=== PATIENT | female | born 1955 | race Caucasian/White ===

== ENCOUNTER 2017-02-22 13:31 | Inpatient (IN) ==
--- NOTE | 2017-02-22 14:09 | Emergency Department Note ---
Disposition Clinical Impression: Severe anemia, Symptomatic anemia Disposition: Admitted As Inpatient Condition: Fair Referrals: Matthias Davey MD [Primary Care Provider] - Forms: ED Satisfaction Letter Time of Disposition: 14:25 SOB HPI - General Chief Complaint: ED Shortness of Breath/Dyspnea Stated Complaint: MIC, bilat LE edema Time Seen by Provider: 02/22/17 13:49 Source: patient Mode of arrival: private vehicle Limitations: no limitations Nursing Notes Reviewed: Yes Vital Signs Reviewed: Yes - History of Present Illness Pt Subjective Complaint: shortness of breath Onset (ago): week(s) (About 3 weeks) Severity: severe Consistency/Duration: intermittent Improves with: rest Worsens with: exertion (Patient states she cannot walk without getting short of breath although she is just sitting still she feels fine.), movement (Patient got short of breath just rolling over in bed for the rectal exam) Known history of: PE, DVT Associated symptoms: Reports: denies other symptoms. Denies: chest pain, fever , cough Treatment prior to arrival: other (The patient went and had lab work done that was actually supposed to have been done about 3 months ago but she never got around to it. She says it was then supposed to be done again about 2 weeks ago which she did not get around to it until today. That result showed a hemoglobin of 6.2 and she was called and told to come to the emergency department.) Cough present: No - Related Data Previous Rx's Medication Instructions Recorded Oxycodone HCl/Acetaminophen 1 each PO Q4-6H PRN #4 tablet 10/19/16 [Percocet 5-325 mg Tablet] Allergies Allergy/AdvReac Type Severity Reaction Status Date / Time Sulfa (Sulfonamide Allergy Rash Verified 10/19/16 13:08 Antibiotics) All systems ED: reviewed and negative except as stated. Constitutional: Denies: fever, chills ENT ED: Denies: ear pain, throat pain Cardiovascular: Reports: dyspnea on exertion. Denies: chest pain, palpitations , orthopnea Respiratory: Denies: cough, wheezes, hemoptysis Gastrointestinal: Denies: abdominal pain, nausea, vomiting, hematemesis, melena , hematochezia Genitourinary: Denies: urgency, dysuria, hematuria Musculoskeletal: Denies: back pain Integumentary: Denies: rash Neurological: Reports: weakness (Generalized). Denies: headache Hematological/Lymphatic: Denies: easy bleeding, easy bruising Past Medical History - Past Medical History Attestation: Yes The following information was validated with the patient. 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 Absent : tenderness - Respiratory Respiratory exam: Present: other (Patient has good air movement on inspiration and expiration. There are crackles at the bases bilaterally.). Absent: respiratory distress - Cardiovascular Cardiovascular exam: Present: regular rate, irregular rhythm, normal heart sounds - Abdominal Exam Abdominal exam: Present: soft, Non-Tender, normal bowel sounds - Rectal Exam [employer] present during exam: Yes Rectal exam: Present: normal inspection, normal rectal tone, heme (-) stool - Extremities Exam Extremities exam: Present: normal inspection, full ROM, pedal edema (Bilateral) - Neurological Exam Neurological exam: Present: alert, oriented X3 - Psychiatric Psychiatric exam: Present: normal affect, normal mood - Skin Skin exam: Present: warm, dry. Absent: rash Course Course Narrative: Patient presents with a report of several weeks of shortness of breath. She has got some edema building up in her legs. She does have a little crackles in the base of her lungs. She has dyspnea on exertion but not orthopnea. She had lab work done today which showed hemoglobin of 6.2. I think this explains her symptoms. I think all the issues are more related to the anemia as opposed to congestive heart failure. Patient has chronic history of anemia but says her blood count is never been this low. She has never required transfusion before. She does not report any blood loss. Her stool was guaiac negative. I ordered an IV and a transfusion of 2 units of packed red cells. No further workup is indicated here in the emergency department except for checking her coags and a chest x-ray. I have already placed a call to the hospitalist to arrange admission for transfusion. - Consultations Consultation #1: Dev, clinical nurse practitioner - I spoke to the hospitalist nurse practitioner. Discussed the case and his exam findings and lab results. Patient has been accepted for admission. Time: 14:24 Vital Signs Temperature 98.4 F 02/22/17 13:35 Pulse Rate 91 02/22/17 13:35 Respiratory Rate 20 02/22/17 13:35 Blood Pressure 147/72 02/22/17 13:35 O2 Sat by Pulse Oximetry 94 02/22/17 13:35 Temperature 98.4 F 02/22/17 13:35 Pulse Rate 91 02/22/17 13:35 Respiratory Rate 20 02/22/17 13:35 Blood Pressure 147/72 02/22/17 13:35 O2 Sat by Pulse Oximetry 94 02/22/17 13:35 Oxygen Delivery Oxygen Delivery Room Air Shortness of Breath/Dyspnea - Medical Records Medical records reviewed: Yes I reviewed the patient's medical records. - EKG Data EKG attestation: Yes I reviewed and interpreted this EKG. EKG shows normal: Reports: axis Rate: Reports: tachycardia Rhythm: Reports: A.Fib [place]/QRS: Reports: IVCD Voltage: Reports: decreased voltage throughout Interpretation: Reports: unchanged when compared to prior tracing (date) ( May 2014)
[2017-02-22 14:34] LABS: INR 3.2; Prothrombin Time 36.1 Seconds (9.4-12.1)
[2017-02-22 14:37] LABS: Activated Partial Thrombo Time 45.9 Seconds (26.0-36.0)
[2017-02-22] MEDS ORDERED: 0.9 % Sodium Chloride 250 ML ONE ×2 (15:44→22:14)
[2017-02-22] MEDS ORDERED: Acetaminophen 325 MG TABLET PO PRN (16:09)
[2017-02-22] MEDS ORDERED: Naloxone 0.4 MG/ML INJ IVP PRN (16:09)
--- NOTE | 2017-02-22 16:38 | Internal Med History&Physical ---
<Carol Méndez - Last Filed: 02/22/17 17:12> Date of Encounter: 02/22/17 Time of Encounter: 16:23 Assessment and Plan (1) Symptomatic anemia Current visit: Yes Status: Acute 1 patient has been expressing increasing shortness of breath approximately 3 weeks. She does have a history of anemia has not been taking her iron pills for the past month. She denies any symptoms or bleeding. Hemoglobin 6.2 she was typed and screened transfuse 2 units PRBCs. INR is 3.2 we will continue to monitor H&H 2 performed anemia workup 3 she is not actively bleeding right now-once anemia workup resulted consult GI for possible endoscopy 4 cardiac monitoring (2) Atrial fibrillation Current visit: Yes Status: Acute 1 patient has a history of chronic atrial fibrillation presently rate is controlled she is on Cardizem which we will continue we will hold her Coumadin for now since she is having symptomatic anemia 2 continue his cardiac monitoring Qualifiers: Atrial fibrillation type: chronic Qualified Code(s): I48.2 - Chronic atrial fibrillation (3) History of DVT (deep vein thrombosis) Current visit: Yes Status: Acute 1 she has a history of DVT with PE refill filter in place we will hold Coumadin for now due to symptomatic anemia (4) Hypertension Current visit: Yes Status: Acute 1 resume control we will continue with home medications Qualifiers: Hypertension type: essential hypertension Qualified Code(s): I10 - Essential (primary) hypertension (5) DVT prophylaxis Current visit: Yes Status: Acute SCDs due to symptomatic anemia Internal Medicine - H&P: HPI Chief complaint: SOB Admitted From: Emergency Dept Plans for Post Hospital Care: Home History of present illness: Ms. Espinosa is a 61 year old female Afib anticoagulated DVT PE with IVC filter hypertension rheumatoid arthritis psoriasis. According to patient she has been experiencing increasing shortness of breath on exertion and at rest as well as lower extremity edema. She does have a history of atrial fibrillation and she is morbidly obese she states is not common for her to be short of breath however not normally at rest. Patient states that she does have chronic anemia it is prescribed iron however she has not taken it for over a month due to she ran out of her medication. She denies any melena hematochezia hematemesis, vaginal bleeding or hematuria. She has not had any recent EGD or colonoscopy She presented to her PCP today lab work was drawn her hemoglobin was 6.5 and was advised to go to the ER. According to ER records stool guaiac was negative coags were obtained INR was 3.2. She was typed and screened for 2 years PRBCs and transfusion started in the emergency department. She has been admitted for further workup and evaluation. Presently patient denies any chest pain shortness of breath. She does not appear to be in any respiratory distress. Lungs sounds with faint crackles in the bases. Heart sounds S1 and S2 with no rubs clicks, murmurs noted she has +2 pitting edema lower extremities bilaterally she is hemodynamically stable at this time. I reviewed this case with Dr. Judge who agrees with plan. Past Med Surg Social Fam HX - Past Medical History Medical history: atrial fibrillation, DVT, hypertension, pulmonary embolus, RA Psychiatric history: no psych history - Past Surgical History Surgical History: other, IVC filter - Social History Smoking Status: Never smoker Smokeless Tobacco Status: No Alcohol use: none Drug use: none - Family History Father Living Status: Cause of : trauma Hx Family Cardiac Disorders: Yes (Heart hypertension) Internal Medicine - H&P: Meds Cholecalciferol (D-3) [Vitamin D] 4,000 unit PO MOFR 02/22/17 [History] Diltiazem HCl [Cardizem Cd] 360 mg PO DAILY 02/22/17 [History] Ferrous Sulfate [Iron] 325 mg PO DAILY 02/22/17 [History] Tramadol HCl [Ultram] 100 mg PO BID PRN 02/22/17 [History] Warfarin [Coumadin] 7.5 mg PO SUTUWETHSA 02/22/17 [History] Warfarin [Coumadin] 10 mg PO MOFR 02/22/17 [History] Allergies Sulfa (Sulfonamide Antibiotics) Allergy (Verified 10/19/16 13:08) Rash All Systems PM: A 10-system review of systems was performed and is negative for pertinent findings except as documented above in the HPI. - Constitutional Constitutional: no chills, no fever(s), no night sweats - EENT Eyes: no change in vision, no discharge, no pain, no photophobia Nose, mouth and throat: no dysphagia, no nasal discharge, no neck pain, no sore throat - Cardiovascular Cardiovascular ROS IM: dyspnea, dyspnea on exertion, edema, no chest pain, no diaphoresis, no lightheadedness, no palpitations, no syncope - Respiratory Respiratory: dyspnea, dyspnea on exertion - Gastrointestinal Gastrointestinal: no abdominal pain, no diarrhea, no hematemesis, no hematochezia, no melena, no nausea, no vomiting - Genitourinary Genitourinary: no change in urinary stream, no dysuria, no flank pain, no hematuria - Musculoskeletal Musculoskeletal ROS IM: no numbness, no tingling - Integumentary Integumentary IM: no rash, no unusual bruising - Neurological Neurological ROS: no confusion, no convulsions, no focal weakness, no numbness, no tingling, no tremor(s) - Hematologic/Lymphatic Hematologic/Lymphatic: no easy bruising - Constitutional Vitals: Temp Pulse Resp BP Pulse Ox 98.1 F 80 18 127/72 94 02/22/17 16:08 02/22/17 16:08 02/22/17 16:08 02/22/17 16:08 02/22/17 13:35 General appearance: Present: A&O X 3 - Head Head exam: Present: atraumatic, normocephalic - Eye Eye exam: Present: PERRL, conjuntiva pink, sclera anicteric - Neck Neck exam general surgery: Present: supple, trachea midline. Absent: lymphadenopathy - Respiratory Respiratory exam: Present: rales. Absent: accessory muscle use, rhonchi, wheezes - Cardiovascular Cardiovascular exam: Present: RRR, +S1, +S2. Absent: diastolic murmur, gallop, rubs, systolic murmur - GI/Abdominal GI/Abdominal exam: Present: normal bowel sounds, soft, no peritoneal signs. Absent: distended, tenderness - Extremities Exam Extremities exam: Present: pedal edema, warm, radial pulses palpable and symetrical. Absent: calf tenderness, cyanotic - Neurological Exam Neurological exam: Present: CN II-XII intact, oriented X3, no focal deficits. Absent: pronater drift, facial droop, speech deficit - Skin Skin exam: Present: dry, intact Internal Med - H&P Results - Labs Labs: CBC WBC 6.5 11 6.2 hematocrit 27.2 platelets 343 PT 361 INR 3.2 PTT 45.9 BMP sodium 139 potassium 3.7 chloride 109 bicarbonate 22 BUN 12 crit 0.80 glucose 125 TSH 3.8 BNP 189 - EKG Data Prior EKG available for review: yes When compared to previous EKG: there is no significant change EKG comments: 02/22/17 16:54 Atrial fibrillation - Diagnostic Studies Other Images Additional comments: Chest X-Ray 02/22/17 14:06 IMPRESSION: Cardiomegaly with findings suggestive of developing mild pulmonary edema with a small right-sided pleural effusion. D/ / Inez Barker MD / Inez Barker MD Interpreting Provider: Inez Barker MD <Irineo Judge P - Last Filed: 02/22/17 17:38> Date of Encounter: 02/22/17 Internal Medicine - H&P: HPI History of present illness: Ms. Espinosa is a 61 year old female Past Med Surg Social Fam HX - Family History Father Living Status: Age at : 79 Cause of : trauma Hx Family Cardiac Disorders: Yes (Heart hypertension) Mother Living Status: Age at : 60 Cause of : IN HER SLEEP Hx Family Cardiac Disorders: Yes Hx Family Endocrine Disorder: Yes (DM) All Systems PM: A 10-system review of systems was performed and is negative for pertinent findings except as documented above in the HPI. - Constitutional Vitals: Temp Pulse Resp BP Pulse Ox 98.1 F 84 18 136/62 96 02/22/17 17:05 02/22/17 17:05 02/22/17 17:05 02/22/17 17:05 02/22/17 17:05 Internal Med - H&P Results - Labs Labs: Cardiac Enzymes 02/22/17 Range/Units 17:09 Troponin I 0.01 (0-0.03) ng/mL - Attending Attestation I examined this patient and my medical decision-making was reviewed with the MAT PACKER/PA/Advanced Practice Nurse/Resident Physician. I agree with the documented findings, disposition and treatment plan as described except to the extent set forth below.
[2017-02-22] MEDS: traMADol 50 MG TABLET PO PRN (23:14)
[2017-02-23 04:57] LABS: Hemoglobin 7.1 g/dL (11.5-15.4)
[2017-02-23 04:58] LABS: Basophils # 0.1 K/mcL (0.0-0.2); Basophils % 1.4 %; Eosinophils # 0.4 K/mcL (0.0-0.6); Eosinophils % 6.5 %; Hematocrit 24.5 % (35.3-44.9); Immature Granulocytes % 0.2 % (0-4); Lymphocytes # 1.2 K/mcL (0.6-4.6); Lymphocytes % 18.7 %; Mean Corpuscular Hemoglobin 18.8 pg (28.0-33.3); Mean Corpuscular Volume 64.8 fL (83.0-100.0); Mean Platelet Volume 9.4 fL (9.4-12.4); Monocytes % 14.6 %; Neutrophils # 3.9 K/mcL (1.6-8.9); Platelet Count 309 K/mcL (140-400); Red Blood Count 3.78 M/mcL (3.82-4.97); Red Cell Distribution Width 22.2 % (11.5-14.5); Segmented Neutrophils % 58.6 %
[2017-02-23 05:17] LABS: % Iron Saturation 3 % (15-50); Alanine Aminotransferase 7 Units/L (0-55); Albumin 3.3 g/dL (3.5-5.0); Albumin/Globulin Ratio 1.1 (1.1-2.2); Alkaline Phosphatase 83 Units/L (38-126); Aspartate Amino Transferase 13 Units/L (5-34); BUN/Creatinine Ratio 15 (6-26); Bilirubin,Total 1.2 mg/dL (0.2-1.2); Blood Urea Nitrogen 12 mg/dL (7-20); Calcium 8.7 mg/dL (8.6-10.8); Carbon Dioxide 24 mEq/L (19-29); Chloride 108 mEq/L (98-109); Chol/HDL Ratio 3.2 (0-4.9); Cholesterol 95 mg/dL (< 200); Globulin 3.1 g/dL (2.4-3.5); Glucose 96 mg/dL (70-99); HDL Cholesterol 30 mg/dL (40-59); Iron 13 mcg/dL (50-170); LDL Cholesterol,Calculated 57 mg/dL (0-99); Osmolality,Calculated 286 (280-300); Phosphorous 4.1 mg/dL (2.3-4.7); Potassium 3.9 mEq/L (3.5-4.5); Sodium 138 mEq/L (136-145); Total Protein 6.4 g/dL (6.0-8.3); Transferrin 359 mg/dL (180-382); Triglycerides 39 mg/dL (< 150); eGFR For African Americans > 60 (> 60); eGFR For Non-African Americans > 60 (> 60)
[2017-02-23 05:35] LABS: Anisocytosis 1+ (Not Present); Hypochromasia Present (Not Present); Macrocytosis Present (Not Present); Microcytosis Present (Not Present); Polychromasia 1+ (Not Present)
[2017-02-23 05:36] LABS: Large Platelets Present (Not Present); Platelet Estimate Normal (Normal); Tear Drop Cells 1+ (Not Present)
[2017-02-23 05:37] LABS: Ovalocytes 1+ (Not Present)
[2017-02-23 05:48] LABS: Folate 12.5 ng/mL (7.0-31.4)
[2017-02-23] MEDS: Diltiazem CD (24hr) 180 MG CAPSULE PO SCH (09:04)
[2017-02-23] MEDS: traMADol 50 MG TABLET PO PRN ×2 (09:05→23:48)
[2017-02-23] MEDS ORDERED: SODIUM CHLORIDE/NAHCO3/KCL/PEG 4,000 ML SOLN.RECON PO ONE (10:59)
--- NOTE | 2017-02-23 13:14 | Internal Med Progress Note ---
Date of Encounter: 02/23/17 Time of Encounter: 13:11 - Assessment and plan (1) Symptomatic anemia Current Visit: Yes Status: Acute Assessment and plan: Worsening shortness of breath. Evaluated by PCP. Noted that patient's hemoglobin was low and that is why she was sent to emergency room. Anemia workup showed hypochromic, microcytic anemia. Iron deficiency anemia: Low serum iron Possibility of Thal can not be ruled out Plan: IV PPI 40 mg twice a day. Gastroenterology evaluation. I have spoken to gastroenterology and updated. Possible EGD/colonoscopy on Saturday (2) Atrial fibrillation Current Visit: Yes Status: Acute Assessment and plan: Chronic persistent atrial fibrillation. Rate controlled with Cardizem. We will keep Coumadin on hold in view of symptomatic anemia. Qualifiers: Atrial fibrillation type: chronic Qualified Code(s): I48.2 - Chronic atrial fibrillation (3) Hypertension Current Visit: Yes Status: Acute Assessment and plan: Blood pressure is well controlled. Qualifiers: Hypertension type: essential hypertension Qualified Code(s): I10 - Essential (primary) hypertension (4) DVT prophylaxis Current Visit: Yes Status: Acute Assessment and plan: Elevated INR secondary to Coumadin. Medical decision making: This patient has a moderate to severe risk of worsening in spite of being on appropriate medication due to underlying possible gastrointestinal bleed - Subjective Interval history: Seen and examined. Chart reviewed. Patient is comfortably lying in the bed. Patient denies chest pain, shortness of breath, dizziness or diarrhea. - Constitutional Vitals: Temp Pulse Resp BP Pulse Ox 98.1 F 82 17 135/81 93 02/23/17 11:25 02/23/17 11:25 02/23/17 11:25 02/23/17 11:25 02/23/17 11:25 General appearance: Present: A&O X 3 - Head Head exam: Present: atraumatic, normocephalic - Eye Eye exam: Present: PERRL, conjuntiva pink, sclera anicteric Pupils: Present: PERRL - Neck Neck exam general surgery: Present: supple, trachea midline. Absent: lymphadenopathy - Respiratory Respiratory exam: Present: CTAB. Absent: accessory muscle use, rales, rhonchi, wheezes - Cardiovascular Cardiovascular exam: Present: RRR, +S1, +S2. Absent: diastolic murmur, gallop, rubs, systolic murmur - GI/Abdominal GI/Abdominal exam: Present: normal bowel sounds, soft, no peritoneal signs. Absent: distended, tenderness - Extremities Exam Extremities exam: Present: warm, radial pulses palpable and symetrical. Absent : calf tenderness, cyanotic, pedal edema - Neurological Exam Neurological exam: Present: CN II-XII intact, oriented X3, no focal deficits. Absent: pronater drift, facial droop, speech deficit - Skin Skin exam: Present: dry, intact Internal Medicine: Result - Labs CBC & Chem 7: 02/23/17 04:36 02/23/17 04:36 Labs: Short CBC 02/23/17 Range/Units 04:36 WBC 6.6 (4.3-11.1) K/mcL Hgb 7.1 L (11.5-15.4) g/dL Hct 24.5 L (35.3-44.9) % Plt Count 309 (140-400) K/mcL Neutrophils # 3.9 (1.6-8.9) K/mcL BMP 02/23/17 04:36 Sodium 138 Potassium 3.9 Chloride 108 Carbon Dioxide 24 BUN 12 Creatinine 0.81 Glucose 96 Calcium 8.7 Cardiac Enzymes 02/22/17 02/22/17 02/23/17 Range/Units 17:09 22:50 04:36 Troponin I 0.01 0.01 0.00 (0-0.03) ng/mL Liver Function 02/23/17 Range/Units 04:36 Total Bilirubin 1.2 (0.2-1.2) mg/dL AST 13 (5-34) Units/L ALT 7 (0-55) Units/L Alkaline Phosphatase 83 (38-126) Units/L Albumin 3.3 L (3.5-5.0) g/dL - ABG Interpretation ABG results: PT/INR, D-dimer PT 36.1 Seconds (9.4-12.1) H 02/22/17 14:14 Consult Discharge Plan - Plan Referrals: Matthias Davey MD [Primary Care Provider] -
[2017-02-24 04:29] LABS: Hemoglobin 7.6 g/dL (11.5-15.4); Segmented Neutrophils % 58.6 %
[2017-02-24 04:31] LABS: Basophils # 0.1 K/mcL (0.0-0.2); Eosinophils # 0.6 K/mcL (0.0-0.6); Eosinophils % 8.1 %; Hematocrit 26.5 % (35.3-44.9); Immature Granulocytes % 0.1 % (0-4); Lymphocytes # 1.1 K/mcL (0.6-4.6); Mean Corpuscular HGB Conc 28.7 g/dL (31.6-35.5); Mean Corpuscular Hemoglobin 18.8 pg (28.0-33.3); Mean Corpuscular Volume 65.4 fL (83.0-100.0); Mean Platelet Volume 9.9 fL (9.4-12.4); Monocytes # 1.2 K/mcL (0.0-1.3); Monocytes % 16.2 %; Neutrophils # 4.2 K/mcL (1.6-8.9); Platelet Count 317 K/mcL (140-400); Red Blood Count 4.05 M/mcL (3.82-4.97); Red Cell Distribution Width 22.3 % (11.5-14.5)
[2017-02-24 04:46] LABS: Anisocytosis 1+ (Not Present); Hypochromasia Present (Not Present); Microcytosis Present (Not Present); Platelet Estimate Normal (Normal)
[2017-02-24 04:47] LABS: Polychromasia 1+ (Not Present); Target Cells 1+ (Not Present)
[2017-02-24 04:55] LABS: Alanine Aminotransferase 8 Units/L (0-55); Albumin 3.2 g/dL (3.5-5.0); Albumin/Globulin Ratio 0.9 (1.1-2.2); Alkaline Phosphatase 86 Units/L (38-126); Aspartate Amino Transferase 14 Units/L (5-34); BUN/Creatinine Ratio 16 (6-26); Blood Urea Nitrogen 12 mg/dL (7-20); Calcium 8.8 mg/dL (8.6-10.8); Carbon Dioxide 23 mEq/L (19-29); Chloride 109 mEq/L (98-109); Globulin 3.4 g/dL (2.4-3.5); Glucose 94 mg/dL (70-99); Osmolality,Calculated 288 (280-300); Sodium 139 mEq/L (136-145); Total Protein 6.6 g/dL (6.0-8.3); eGFR For African Americans > 60 (> 60); eGFR For Non-African Americans > 60 (> 60)
[2017-02-24] MEDS: traMADol 50 MG TABLET PO PRN ×2 (09:19→22:00)
[2017-02-24] MEDS: Diltiazem CD (24hr) 180 MG CAPSULE PO SCH (09:19)
--- NOTE | 2017-02-24 10:18 | Internal Med Progress Note ---
Date of Encounter: 02/24/17 Time of Encounter: 10:15 - Assessment and plan (1) Symptomatic anemia Current Visit: Yes Status: Acute Assessment and plan: Worsening shortness of breath. Evaluated by PCP. Noted that patient's hemoglobin was low and that is why she was sent to emergency room. Anemia workup showed hypochromic, microcytic anemia. Iron deficiency anemia: Low serum iron Possibility of Thal can not be ruled out Plan: IV PPI 40 mg twice a day. Gastroenterology evaluation. I have spoken to gastroenterology and updated. Possible EGD/colonoscopy on Saturday02/24/2017 Hb today is 7.6 still feeling weak. no new complaints awaiting for EGD/Colonoscopy tomorrow possibility of Thalasemia should be consider if EGD/Colon negative. (2) Atrial fibrillation Current Visit: Yes Status: Acute Assessment and plan: Chronic persistent atrial fibrillation. Rate controlled with Cardizem. We will keep Coumadin on hold in view of symptomatic anemia. Qualifiers: Atrial fibrillation type: chronic Qualified Code(s): I48.2 - Chronic atrial fibrillation (3) Hypertension Current Visit: Yes Status: Acute Assessment and plan: Blood pressure is well controlled. Qualifiers: Hypertension type: essential hypertension Qualified Code(s): I10 - Essential (primary) hypertension (4) DVT prophylaxis Current Visit: Yes Status: Acute Assessment and plan: Elevated INR secondary to Coumadin. Medical decision making: This patient has a moderate to severe risk of worsening in spite of being on appropriate medication due to underlying possible gastrointestinal bleed - Subjective Interval history: Seen and examined. Chart reviewed. Patient is comfortably lying in the bed. Patient denies chest pain, shortness of breath, dizziness or diarrhea. 02/24/2017 seen and examined. chart reviewed. no new complaints. still feeling weak. - Constitutional Vitals: Temp Pulse Resp BP Pulse Ox 97.7 F 97 17 131/74 99 02/24/17 08:09 02/24/17 08:09 02/24/17 08:09 02/24/17 08:09 02/24/17 08:09 General appearance: Present: A&O X 3 - Head Head exam: Present: atraumatic, normocephalic - Eye Eye exam: Present: PERRL, conjuntiva pink, sclera anicteric Pupils: Present: PERRL - Neck Neck exam general surgery: Present: supple, trachea midline. Absent: lymphadenopathy - Respiratory Respiratory exam: Present: CTAB. Absent: accessory muscle use, rales, rhonchi, wheezes - Cardiovascular Cardiovascular exam: Present: RRR, +S1, +S2. Absent: diastolic murmur, gallop, rubs, systolic murmur - GI/Abdominal GI/Abdominal exam: Present: normal bowel sounds, soft, no peritoneal signs. Absent: distended, tenderness - Extremities Exam Extremities exam: Present: warm, radial pulses palpable and symetrical. Absent : calf tenderness, cyanotic, pedal edema - Neurological Exam Neurological exam: Present: CN II-XII intact, oriented X3, no focal deficits. Absent: pronater drift, facial droop, speech deficit - Skin Skin exam: Present: dry, intact Internal Medicine: Result - Labs CBC & Chem 7: 02/24/17 03:40 02/24/17 03:40 Labs: Short CBC 02/24/17 Range/Units 03:40 WBC 7.1 (4.3-11.1) K/mcL Hgb 7.6 L (11.5-15.4) g/dL Hct 26.5 L (35.3-44.9) % Plt Count 317 (140-400) K/mcL Neutrophils # 4.2 (1.6-8.9) K/mcL BMP 02/24/17 03:40 Sodium 139 Potassium 4.0 Chloride 109 Carbon Dioxide 23 BUN 12 Creatinine 0.75 Glucose 94 Calcium 8.8 Liver Function 02/24/17 Range/Units 03:40 Total Bilirubin 1.0 (0.2-1.2) mg/dL AST 14 (5-34) Units/L ALT 8 (0-55) Units/L Alkaline Phosphatase 86 (38-126) Units/L Albumin 3.2 L (3.5-5.0) g/dL - ABG Interpretation ABG results: PT/INR, D-dimer PT 36.1 Seconds (9.4-12.1) H 02/22/17 14:14 Consult Discharge Plan - Plan Referrals: Matthias Davey MD [Primary Care Provider] -
[2017-02-24] MEDS ORDERED: Polyethylene Glycol 3350 255 GM POWDER PO PRN (17:00)
[2017-02-24] MEDS ORDERED: SODIUM CHLORIDE/NAHCO3/KCL/PEG 4,000 ML SOLN.RECON PO ONE (17:00)
[2017-02-25 06:34] LABS: Basophils # 0.1 K/mcL (0.0-0.2); Basophils % 0.7 %; Eosinophils # 0.5 K/mcL (0.0-0.6); Hematocrit 25.8 % (35.3-44.9); Hemoglobin 7.4 g/dL (11.5-15.4); Immature Granulocytes % 0.4 % (0-4); Lymphocytes # 1.2 K/mcL (0.6-4.6); Lymphocytes % 17.4 %; Mean Corpuscular HGB Conc 28.7 g/dL (31.6-35.5); Mean Corpuscular Hemoglobin 18.7 pg (28.0-33.3); Mean Corpuscular Volume 65.3 fL (83.0-100.0); Mean Platelet Volume 9.7 fL (9.4-12.4); Monocytes % 13.5 %; Neutrophils # 4.3 K/mcL (1.6-8.9); Platelet Count 278 K/mcL (140-400); Red Blood Count 3.95 M/mcL (3.82-4.97); Red Cell Distribution Width 22.9 % (11.5-14.5)
--- NOTE | 2017-02-25 06:54 | Electrocardiograph Report ---
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
[2017-02-25 06:56] LABS: Alanine Aminotransferase 8 Units/L (0-55); Albumin 3.3 g/dL (3.5-5.0); Alkaline Phosphatase 87 Units/L (38-126); Aspartate Amino Transferase 16 Units/L (5-34); BUN/Creatinine Ratio 12 (6-26); Bilirubin,Total 1.1 mg/dL (0.2-1.2); Blood Urea Nitrogen 9 mg/dL (7-20); Calcium 8.8 mg/dL (8.6-10.8); Carbon Dioxide 24 mEq/L (19-29); Chloride 108 mEq/L (98-109); Globulin 3.2 g/dL (2.4-3.5); Glucose 89 mg/dL (70-99); Osmolality,Calculated 290 (280-300); Potassium 3.4 mEq/L (3.5-4.5); Sodium 141 mEq/L (136-145); Total Protein 6.5 g/dL (6.0-8.3); eGFR For African Americans > 60 (> 60); eGFR For Non-African Americans > 60 (> 60)
[2017-02-25 07:57] LABS: Anisocytosis 1+ (Not Present); Hypochromasia Present (Not Present); Microcytosis Present (Not Present)
[2017-02-25 07:58] LABS: Macrocytosis Present (Not Present); Platelet Estimate Normal (Normal)
[2017-02-25] MEDS: Diltiazem CD (24hr) 180 MG CAPSULE PO SCH (08:16)
[2017-02-25] MEDS: traMADol 50 MG TABLET PO PRN ×2 (08:18→21:28)
[2017-02-25 08:56] LABS: INR 1.7; Prothrombin Time 18.3 Seconds (9.4-12.1)
--- NOTE | 2017-02-25 09:41 | Internal Med Progress Note ---
<Waldemar Warren - Last Filed: 02/25/17 13:14> Date of Encounter: 02/25/17 Time of Encounter: 09:41 - Assessment and plan (1) Symptomatic anemia Current Visit: Yes Status: Acute Assessment and plan: Worsening shortness of breath. Evaluated by PCP. Noted that patient's hemoglobin was low and that is why she was sent to emergency room. Anemia workup showed hypochromic, microcytic anemia. Iron deficiency anemia: Low serum iron Possibility of Thal can not be ruled out Plan: PPI PO daily Gastroenterology evaluation. I have spoken to gastroenterology and updated. Possible EGD/colonoscopy on Saturday02/25/2017 Hb today is 7. no new complaints awaiting for EGD/Colonoscopy today possibility of Thalasemia should be consider if EGD/Colon negative. Will give two units tonight for hx of a-fib (2) Atrial fibrillation Current Visit: Yes Status: Acute Assessment and plan: Chronic persistent atrial fibrillation. Rate controlled with Cardizem. We will keep Coumadin on hold in view of symptomatic anemia. Qualifiers: Atrial fibrillation type: chronic Qualified Code(s): I48.2 - Chronic atrial fibrillation (3) DVT prophylaxis Current Visit: Yes Status: Acute Assessment and plan: IPC. - Subjective Interval history: patient seen and examined. Patient states that she has not taking iron pills for few months. Denies bloody or black stool last night. - Constitutional Vitals: Temp Pulse Resp BP Pulse Ox 98.1 F 97 15 151/81 97 02/25/17 06:29 02/25/17 06:29 02/25/17 06:29 02/25/17 06:29 02/25/17 06:29 General appearance: Present: cooperative, A&O X 3, pleasant, no acute distress, answers questions appropriately - Respiratory Respiratory exam: Present: CTAB. Absent: chest wall tenderness, rales, rhonchi , wheezes - Cardiovascular Cardiovascular exam: Present: irregular rhythm, +S1, +S2. Absent: clicks, rubs , tachycardia - GI/Abdominal GI/Abdominal exam: Present: normal bowel sounds, soft. Absent: distended, firm , guarding, rebound, rigid, tenderness - Extremities Exam Extremities exam: Present: pedal edema (+1 nonpitting bilateral), warm. Absent : calf tenderness, tenderness Internal Medicine: Result - Labs CBC & Chem 7: 02/25/17 04:36 02/25/17 04:36 Labs: Short CBC 02/25/17 Range/Units 04:36 WBC 7.0 (4.3-11.1) K/mcL Hgb 7.4 L (11.5-15.4) g/dL Hct 25.8 L (35.3-44.9) % Plt Count 278 (140-400) K/mcL Neutrophils # 4.3 (1.6-8.9) K/mcL BMP 02/25/17 04:36 Sodium 141 Potassium 3.4 L Chloride 108 Carbon Dioxide 24 BUN 9 Creatinine 0.75 Glucose 89 Calcium 8.8 Liver Function 02/25/17 Range/Units 04:36 Total Bilirubin 1.1 (0.2-1.2) mg/dL AST 16 (5-34) Units/L ALT 8 (0-55) Units/L Alkaline Phosphatase 87 (38-126) Units/L Albumin 3.3 L (3.5-5.0) g/dL - ABG Interpretation ABG results: PT/INR, D-dimer PT 18.3 Seconds (9.4-12.1) H 02/25/17 08:41 Consult Discharge Plan - Plan Referrals: Matthias Davey MD [Primary Care Provider] - 03/06/17 3:15 pm <Irineo Judge - Last Filed: 02/25/17 16:40> Date of Encounter: 02/25/17 - Assessment and plan (1) Symptomatic anemia Current Visit: Yes Status: Acute (2) Atrial fibrillation Current Visit: Yes Status: Acute Qualifiers: Atrial fibrillation type: chronic Qualified Code(s): I48.2 - Chronic atrial fibrillation (3) Hypertension Current Visit: Yes Status: Acute Qualifiers: Hypertension type: essential hypertension Qualified Code(s): I10 - Essential (primary) hypertension (4) DVT prophylaxis Current Visit: Yes Status: Acute - Constitutional Vitals: Temp Pulse Resp BP Pulse Ox 98.2 F 79 16 140/73 100 02/25/17 14:00 02/25/17 14:00 02/25/17 14:00 02/25/17 14:00 02/25/17 14:00 Internal Medicine: Result - Labs CBC & Chem 7: 02/25/17 04:36 02/25/17 04:36 Labs: Short CBC 02/25/17 Range/Units 04:36 WBC 7.0 (4.3-11.1) K/mcL Hgb 7.4 L (11.5-15.4) g/dL Hct 25.8 L (35.3-44.9) % Plt Count 278 (140-400) K/mcL Neutrophils # 4.3 (1.6-8.9) K/mcL BMP 02/25/17 04:36 Sodium 141 Potassium 3.4 L Chloride 108 Carbon Dioxide 24 BUN 9 Creatinine 0.75 Glucose 89 Calcium 8.8 Liver Function 02/25/17 Range/Units 04:36 Total Bilirubin 1.1 (0.2-1.2) mg/dL AST 16 (5-34) Units/L ALT 8 (0-55) Units/L Alkaline Phosphatase 87 (38-126) Units/L Albumin 3.3 L (3.5-5.0) g/dL - ABG Interpretation ABG results: PT/INR, D-dimer PT 18.3 Seconds (9.4-12.1) H 02/25/17 08:41 - Attending Attestation I examined this patient and my medical decision-making was reviewed with the TRAVEL FREIGHT AND PASSENGER AGENT/PA/Advanced Practice Nurse/Resident Physician. I agree with the documented findings, disposition and treatment plan as described except to the extent set forth below.
--- NOTE | 2017-02-25 12:45 | Gastroenterology Consult Note ---
<Graham Williamson Libby - Last Filed: 02/25/17 12:43> Date of Encounter: 02/25/17 Time of Encounter: 11:15 - Assessment and plan (1) Microcytic anemia Current Visit: Yes Status: Acute Assessment and plan: Hgb on 02/22/17 was 6.2, today Hgb 7.4 with MCV 65.3. Continue to monitor CBC and transfuse PRBC as needed. Plan for EGD and colonoscopy today. Keep NPO for now. (2) Atrial fibrillation Current Visit: Yes Status: Acute Assessment and plan: INR 3.2 on admission, today 1.7. Continue to hold Coumadin. Qualifiers: Atrial fibrillation type: chronic Qualified Code(s): I48.2 - Chronic atrial fibrillation (3) Elevated INR Current Visit: Yes Status: Acute Assessment and plan: Secondary to Coumadin. Continue to hold Coumadin. - Time Spent With Patient Total time spent is greater than 50% in coordination of care (as documented) at patient's floor/unit and/or counseling patient: GI History of Present Illness - Data of Consult Patient: new to practice Consult date: 02/25/17 Requesting Physician: Irineo Judge MD - Consult Narrative Reason for consult: anemia History of present illness: Ms. Espinosa is a 61 year old female with PMHx of Afib, DVT, HTN, PE with IVC filter, RA who was sent to the ED for Hgb of 6.2. She presented with increasing shortness of breath on exertion and at rest as well as lower extremity edema. Patient states that she does have chronic anemia and is prescribed iron however she has not taken it for over a month due to she ran out of her medication. She denies any melena, hematochezia, hematemesis, vaginal bleeding, or hematuria. She has received 2 units PRBC. INR was 3.2 on 02/22. Procedures: Colonoscopy 10/09/2011 Dr. Nguyen: Grade 2 internal hemorrhoids that bleed and prolapse with straining but spontaneously regress to the resting position, diverticulosis. EGD 10/09/2011 Dr. Nguyen: Hiatus hernia NSAIDs: None Anticoagulation: Coumadin Past Med Surg Social Fam HX - Past Medical History Medical history: atrial fibrillation, DVT, hypertension, pulmonary embolus, RA Psychiatric history: no psych history - Past Surgical History Surgical History: other, IVC filter - Social History Smoking Status: Never smoker Smokeless Tobacco Status: No Alcohol use: none Drug use: none - Family History Father Living Status: Age at : 79 Cause of : trauma Hx Family Cardiac Disorders: Yes (Heart hypertension) Mother Living Status: Age at : 60 Cause of : IN HER SLEEP Hx Family Cardiac Disorders: Yes Hx Family Endocrine Disorder: Yes (DM) - Gastrointestinal Gastrointestinal: Present: as per HPI - Constitutional Constitutional: as per HPI - EENT Eyes: as per HPI Ears: Present: as per HPI Nose, mouth and throat: Present: as per HPI - Cardiovascular Cardiovascular ROS: Present: as per HPI - Respiratory Respiratory IM: Present: as per HPI - Genitourinary Genitourinary: Absent: change in color, Urinary frequency - Neurological ROS Neurological GI: Present: as per HPI - Hematologic/Lymphatic Hematologic/Lymphatic pediatric: Present: as per HPI - Musculoskeletal Musculoskeletal ROS GI: Present: as per HPI - Integumentary Integumentary GI: Present: as per HPI - Psychiatric ROS Psychiatric GI: Present: as per HPI - Endocrine Endocrine IM: Present: as per HPI - Constitutional Vitals: Temp Pulse Resp BP Pulse Ox 98.1 F 85 16 131/80 96 02/25/17 10:00 02/25/17 10:00 02/25/17 10:00 02/25/17 10:00 02/25/17 10:00 General appearance: Present: cooperative, A&O X 3, no acute distress, answers questions appropriately - Head Head exam: Present: atraumatic, normocephalic - Eye Eye exam: Present: normal appearance, sclera anicteric - ENT ENT exam: Present: mucous membranes dry - Neck Neck exam general surgery: Present: normal inspection, trachea midline - Respiratory Respiratory exam: Present: CTAB. Absent: rales, rhonchi, wheezes - Cardiovascular Cardiovascular exam: Present: RRR, +S1, +S2 - GI/Abdominal GI/Abdominal exam: Present: soft, no peritoneal signs. Absent: distended, firm , guarding, tenderness - Rectal Rectal exam: Present: deferred - Extremities Exam Extremities exam: Present: warm - Neurological Exam Neurological exam: Present: no focal deficits - Psychiatric Psychiatric exam: Present: normal affect, normal mood - Skin Skin exam: Present: dry, intact, normal color, warm Results - Labs CBC & Chem 7: 02/25/17 04:36 02/25/17 04:36 Labs: Last Result Calcium 8.8 mg/dL (8.6-10.8) 02/25/17 04:36 Iron 13 mcg/dL (50-170) L 02/23/17 04:36 % Saturation 3 % (15-50) L 02/23/17 04:36 Transferrin 359 mg/dL (180-382) 02/23/17 04:36 Troponin I 0.00 ng/mL (0-0.03) 02/23/17 04:36 Triglycerides 39 mg/dL (< 150) 02/23/17 04:36 Vitamin B12 396 pg/mL (213-816) 02/23/17 04:36 Folate 12.5 ng/mL (7.0-31.4) 02/23/17 04:36 Stool Occult Blood Negative (Negative) 02/22/17 14:08 Entire Visit Hgb 7.4 g/dL (11.5-15.4) L 02/25/17 04:36 Hct 25.8 % (35.3-44.9) L 02/25/17 04:36 PT 18.3 Seconds (9.4-12.1) H 02/25/17 08:41 Total Bilirubin 1.1 mg/dL (0.2-1.2) 02/25/17 04:36 AST 16 Units/L (5-34) 02/25/17 04:36 ALT 8 Units/L (0-55) 02/25/17 04:36 Folate 12.5 ng/mL (7.0-31.4) 02/23/17 04:36 - ABG ABG results: PT/INR, D-dimer PT 18.3 Seconds (9.4-12.1) H 02/25/17 08:41 Consult Discharge Plan - Plan Referrals: Matthias Davey MD [Primary Care Provider] - 03/06/17 3:15 pm <Balta Chapin - Last Filed: 02/25/17 17:43> Date of Encounter: 02/25/17 Time of Encounter: 17:00 - Time Spent With Patient Total time spent is greater than 50% in coordination of care (as documented) at patient's floor/unit and/or counseling patient: GI History of Present Illness - Data of Consult Requesting Physician: Irineo Judge MD - Consult Narrative History of present illness: Ms. Espinosa is a 61 year old female - Constitutional Vitals: Temp Pulse Resp BP Pulse Ox 98.2 F 86 16 148/70 97 02/25/17 14:00 02/25/17 17:38 02/25/17 17:38 02/25/17 17:38 02/25/17 17:38 Results - Labs CBC & Chem 7: 02/25/17 04:36 02/25/17 04:36 Labs: Last Result Calcium 8.8 mg/dL (8.6-10.8) 02/25/17 04:36 Iron 13 mcg/dL (50-170) L 02/23/17 04:36 % Saturation 3 % (15-50) L 02/23/17 04:36 Transferrin 359 mg/dL (180-382) 02/23/17 04:36 Troponin I 0.00 ng/mL (0-0.03) 02/23/17 04:36 Triglycerides 39 mg/dL (< 150) 02/23/17 04:36 Vitamin B12 396 pg/mL (213-816) 02/23/17 04:36 Folate 12.5 ng/mL (7.0-31.4) 02/23/17 04:36 Stool Occult Blood Negative (Negative) 02/22/17 14:08 Entire Visit Hgb 7.4 g/dL (11.5-15.4) L 02/25/17 04:36 Hct 25.8 % (35.3-44.9) L 02/25/17 04:36 PT 18.3 Seconds (9.4-12.1) H 02/25/17 08:41 Total Bilirubin 1.1 mg/dL (0.2-1.2) 02/25/17 04:36 AST 16 Units/L (5-34) 02/25/17 04:36 ALT 8 Units/L (0-55) 02/25/17 04:36 Folate 12.5 ng/mL (7.0-31.4) 02/23/17 04:36 - ABG ABG results: PT/INR, D-dimer PT 18.3 Seconds (9.4-12.1) H 02/25/17 08:41 - Attending Attestation I examined this patient and my medical decision-making was reviewed with the QUARRYING SPECIALIST/PA/Advanced Practice Nurse/Resident Physician. I agree with the documented findings, disposition and treatment plan as described except to the extent set forth below.
[2017-02-25] MEDS ORDERED: *HR* Midazolam HCl 5 MG/5 ML VIAL IVP ONE (17:21)
[2017-02-25] MEDS ORDERED: *HR* FentaNYL (PF) 100 MCG/2 ML VIAL ONE (17:22)
[2017-02-25] MEDS ORDERED: Simethicone 40 MG/0.6 ML MLS IR ONE (17:36)
[2017-02-25] MEDS ORDERED: Tetracaine/Benzocaine/Butamben 200MG/SPRAY (100SPY/BOT) MM ONE (17:36)
[2017-02-25] MEDS ORDERED: 0.9 % Sodium Chloride 1,000 ML IVC SCH (17:45)
[2017-02-25] MEDS: *HR* Midazolam HCl 5 MG/5 ML VIAL IVP PRN ×3 (17:47→18:01)
[2017-02-25] MEDS: *HR* FentaNYL (PF) 100 MCG/2 ML VIAL IVP PRN ×3 (17:47→18:01)
[2017-02-25] MEDS ORDERED: 0.9 % Sodium Chloride 250 ML ONE (23:28)
[2017-02-26] MEDS ORDERED: 0.9 % Sodium Chloride 250 ML ONE (02:43)
[2017-02-26 06:16] VITALS: BP 121/79
--- NOTE | 2017-02-26 08:08 | Internal Med Progress Note ---
Date of Encounter: 02/26/17 Time of Encounter: 08:08 - Assessment and plan (1) Symptomatic anemia Current Visit: Yes Status: Acute (2) Atrial fibrillation Current Visit: Yes Status: Acute Qualifiers: Atrial fibrillation type: chronic Qualified Code(s): I48.2 - Chronic atrial fibrillation (3) DVT prophylaxis Current Visit: Yes Status: Acute - Subjective Interval history: patient seen and examined. Patient states that she has not taking iron pills for few months. Denies bloody or black stool last night. - Constitutional Vitals: Temp Pulse Resp BP Pulse Ox 98.5 F 73 15 121/79 96 02/26/17 06:16 02/26/17 06:16 02/26/17 06:16 02/26/17 06:16 02/26/17 06:16 General appearance: Present: cooperative, A&O X 3, pleasant, no acute distress, answers questions appropriately Internal Medicine: Result - Labs CBC & Chem 7: 02/25/17 04:36 02/25/17 04:36 - ABG Interpretation ABG results: PT/INR, D-dimer PT 18.3 Seconds (9.4-12.1) H 02/25/17 08:41 Consult Discharge Plan - Plan Referrals: Matthias Davey MD [Primary Care Provider] - 03/06/17 3:15 pm
[2017-02-26 08:10] LABS: Mean Platelet Volume 9.5 fL (9.4-12.4)
[2017-02-26 08:11] LABS: BUN/Creatinine Ratio 13 (6-26); Blood Urea Nitrogen 11 mg/dL (7-20); Calcium 8.5 mg/dL (8.6-10.8); Carbon Dioxide 24 mEq/L (19-29); Chloride 109 mEq/L (98-109); Glucose 98 mg/dL (70-99); Osmolality,Calculated 287 (280-300); Potassium 4.3 mEq/L (3.5-4.5); Sodium 139 mEq/L (136-145); eGFR For African Americans > 60 (> 60); eGFR For Non-African Americans > 60 (> 60)
[2017-02-26 08:12] LABS: Basophils # 0.1 K/mcL (0.0-0.2); Basophils % 1.4 %; Eosinophils # 0.6 K/mcL (0.0-0.6); Eosinophils % 10.2 %; Hematocrit 28.3 % (35.3-44.9); Hemoglobin 8.3 g/dL (11.5-15.4); Immature Granulocytes % 0.3 % (0-4); Lymphocytes # 1.3 K/mcL (0.6-4.6); Lymphocytes % 22.1 %; Mean Corpuscular HGB Conc 29.3 g/dL (31.6-35.5); Mean Corpuscular Hemoglobin 20.1 pg (28.0-33.3); Mean Corpuscular Volume 68.7 fL (83.0-100.0); Monocytes % 17.3 %; Neutrophils # 2.8 K/mcL (1.6-8.9); Platelet Count 262 K/mcL (140-400); Red Blood Count 4.12 M/mcL (3.82-4.97); Red Cell Distribution Width 25.2 % (11.5-14.5); Segmented Neutrophils % 48.7 %
[2017-02-26 09:16] LABS: Anisocytosis 2+ (Not Present); Hypochromasia Present (Not Present); Microcytosis Present (Not Present); Platelet Estimate Normal (Normal)
[2017-02-26] MEDS: traMADol 50 MG TABLET PO PRN (09:38)
[2017-02-26] MEDS ORDERED: Ferumoxytol 510 MG in 0.9 % Sodium Chloride 100 ML IVPB ONE (10:07)
--- NOTE | 2017-02-26 10:08 | Discharge Summary ---
Addendum entered and electronically signed by Waldemar Warren DO 02/26/17 11:08: For her duodenal ulcer and esophagitis, pt will be discharged with prilosec prescription as well. Original Note: <Waldemar Warren - Last Filed: 02/26/17 10:15> Date of Encounter: 02/26/17 Time of Encounter: 10:05 - Discharge Diagnosis (1) Symptomatic anemia Priority: Primary Status: Acute (2) Atrial fibrillation Priority: Secondary Status: Acute Qualifiers: Atrial fibrillation type: chronic Qualified Code(s): I48.2 - Chronic atrial fibrillation (3) Iron deficiency Priority: Secondary Status: Acute (4) History of DVT (deep vein thrombosis) Priority: Secondary Status: Acute (5) Hypertension Priority: Secondary Status: Acute Qualifiers: Hypertension type: essential hypertension Qualified Code(s): I10 - Essential (primary) hypertension (6) Microcytic anemia Priority: Secondary Status: Acute (7) Elevated INR Priority: Secondary Status: Acute - Discharge Medications Prescriptions: Omeprazole [PriLOSEC] 20 mg PO DAILY #30 cap Home Medications: Cholecalciferol (D-3) [Vitamin D] 4,000 unit PO MOFR 02/22/17 [History] Diltiazem HCl [Cardizem Cd] 360 mg PO DAILY 02/22/17 [History] Ferrous Sulfate [Iron] 325 mg PO DAILY 02/22/17 [History] Tramadol HCl [Ultram] 100 mg PO BID PRN 02/22/17 [History] Warfarin [Coumadin] 7.5 mg PO SUTUWETHSA 02/22/17 [History] Warfarin [Coumadin] 10 mg PO MOFR 02/22/17 [History] Omeprazole [PriLOSEC] 20 mg PO DAILY #30 cap 02/26/17 [Rx] Allergies/Adverse Reactions: Allergies Sulfa (Sulfonamide Antibiotics) Allergy (Verified 10/19/16 13:08) Rash Date of admission: 02/22/17 16:09 Primary care physician: Matthias Davey MD Consults: 02/22/17 18:16 Consult to Gastroenterology [CONS] Routine Consulting Provider: Gastroenterology Jasmyn Reason for Consult: sx anemia Time Notified: 18:17 Call Completed: Yes Discharging clinician: Waldemar Warren Anticipated date of discharge: 02/26/17 - Patient Status Disposition: Home, Self-Care Condition: Fair Functional capacity at discharge: independent ambulation Overall status at discharge: patient is progressing back to baseline - Discharge Instructions Instructions: Warfarin (By mouth), Omeprazole (By mouth), Atrial Fibrillation ( DC), Chronic Hypertension (DC), Anemia (GEN) Follow Up With: Matthias Davey MD [Primary Care Provider] - 03/06/17 3:15 pm (hospital discharge follow-up, iron deficiency anemia, check INR level for chronic Coumadin therapy for her Ashley. wilber) Balta Chapin MD [Partnered Physician] - (Follow-up in a week for capsule endoscopy and endoscopy biopsy results Office will call with appointment when results come back) - Diet and Activity Activity: resume usual activities as tolerated Diet: low fat, low cholesterol (Cardiac diet) Hospital course: Ms. Espinosa is a 61 year old female with a history of atrial fibrillation anticoagulated with Coumadin, DVT, PE with IVC filter, hypertension who was sent to the ER due to low hemoglobin that was found in her PCP office, the level was 6.2, admitted for symtopmatic anemia with SOB, during hospital stay she received 4 units of prbc, GI consulted, double endoscopy did not reveal bleeding source, pt states that she was not compliant with iron pill for last few months, low iron level was noted, her decline in hgb level was gradual since 8 months ago, with low MCV, possible chronic blood lose anemia in a setting of coumadin, pt denies black or bloody stool, hematochezia, hemoptysis, hematemesis, patient was hemodynamically stable during this hospital stay, patient's hemoglobin improved to 8.2 on the date of discharge with no signs of active bleeding, patient will receive IV iron infusion today and patient will recheck hemoglobin in 2 days with close follow-up with her PCP and GI office for outpatient capsule endoscopy. Patient was instructed to restart her anticoagulation therapy in 1 week from hospital discharge day. - Time Spent with Patient Total time spent providing and/or coordinating discharge services: - Constitutional Vitals: Temp Pulse Resp BP Pulse Ox 98.5 F 73 15 121/79 96 02/26/17 06:16 02/26/17 06:16 02/26/17 06:16 02/26/17 06:16 02/26/17 06:16 General appearance: Present: cooperative, A&O X 3, pleasant, no acute distress, answers questions appropriately - Respiratory Respiratory exam: Present: CTAB. Absent: rales, rhonchi, wheezes - Cardiovascular Cardiovascular exam: Present: irregular rhythm, +S1, +S2. Absent: gallop, rubs , systolic murmur - GI/Abdominal GI/Abdominal exam: Present: normal bowel sounds, soft. Absent: distended, firm , guarding, rebound, rigid, tenderness - Extremities Exam Extremities exam: Present: normal inspection, pedal edema (Mild nonpitting bilateral), warm, radial pulses palpable and symetrical. Absent: tenderness <Heri Amezcua - Last Filed: 02/26/17 17:56> Date of Encounter: 02/26/17 - Discharge Diagnosis (1) Anemia Priority: Primary Status: Acute Qualifiers: Anemia type: iron deficiency Iron deficiency anemia type: chronic blood loss Qualified Code(s): D50.0 - Iron deficiency anemia secondary to blood loss (chronic) (2) Hypertension Status: Acute Qualifiers: Hypertension type: essential hypertension Qualified Code(s): I10 - Essential (primary) hypertension (3) Atrial fibrillation Status: Acute Qualifiers: Atrial fibrillation type: chronic Qualified Code(s): I48.2 - Chronic atrial fibrillation (4) History of DVT (deep vein thrombosis) Status: Acute Date of admission: 02/22/17 16:09 Primary care physician: Matthias Davey MD Consults: 02/22/17 18:16 Consult to Gastroenterology [CONS] Routine Consulting Provider: Gastroenterology Jasmyn Reason for Consult: sx anemia Time Notified: 18:17 Call Completed: Yes Hospital course: Ms. Espinosa is a 61 year old female - Time Spent with Patient Total time spent providing and/or coordinating discharge services: 22min - Constitutional Vitals: Temp Pulse Resp BP Pulse Ox 98.5 F 73 15 121/79 96 02/26/17 06:16 02/26/17 06:16 02/26/17 06:16 02/26/17 06:16 02/26/17 06:16 - Attending Attestation I examined this patient and my medical decision-making was reviewed with the Resident Physician on 02/26/17. I agree with the documented findings, disposition and treatment plan as described except to the extent set forth below. Ms. Francisca is doing OK. H/H has been OK. No fever and vitals stable. Exam Alert. Comfortable No wheeze Heart reg Plan D/C home today.
== END 2017-02-26 15:32 | disposition home or self-care (01) | DRG 812 ==
LOC: 2NENU 13:31 → EMEROO 13:31 → SUATTDRO 16:09 → 2NENU 16:52
PROVIDERS: ADMIT Internal Medicine; ATTEND Internal Medicine
PROC: ENDOEBX (2017-02-25 12:45)
PROC: ENDOCBX (2017-02-25 12:45)